=== PATIENT | female | born 1950 | race Caucasian/White ===

== ENCOUNTER 2020-12-29 17:12 | Emergency (ER) | payer OTHER, SELFPAY ==
[2020-12-29] VITALS (13 sets, daily range): BP systolic 118–172; BP diastolic 75–89; PULSE 79–90; RESP 14–20; TEMP 36.9; O2SAT 92–99
--- NOTE | ~2020-12-29 | CT_ITS ---
EXAMINATION: CT brain wo con DATE: 12/29/2020 18:19 INDICATION: Head injury post fall TECHNIQUE: Computed tomography (CT) of the head was performed without intravenous contrast. Sagittal and coronal reconstructions were performed. The mA was adjusted according to patient size. Iterative reconstruction technique was employed. The dose-length product was 983.67 mGy-cm. COMPARISON: head CT dated 12/29/2015 FINDINGS: Evaluation mildly limited by some motion artifact. No calvarial fracture. There is a small lenticular extra-axial hematoma measuring approximately 3.5 x 3.5 cm and up to 9 mm in thickness. The lenticula r configuration as well as that the hematoma extends to the margin but not beyond the region of the c oronal suture be consistent with epidural hematoma although differential would include small subdural hematoma. No other evident intracranial hemorrhage. No acute infarction. Symmetric prominence of the sulci and ventricles consistent with moderate age-appropriate diffuse cerebral volume loss. No midli ne shift. Basal cisterns remain patent. There is moderate scattered white matter hypoattenuation cons istent with chronic small vessel ischemic disease. The orbits, paranasal sinuses and mastoids are nor mal. IMPRESSION: 1. Small extra-axial hematoma overlying the right frontal lobe and favor epidural over subdural hemat lisa. Dr. Mccabe discussed these findings with Dr. Borden at 6:25 PM. 2. Age-related changes including moderate diffuse volume loss and moderate scattered white matter hyp oattenuation consistent with chronic small vessel ischemic disease. Reviewed, dictated and finalized at location A. IMPRESSION: 1. Small extra-axial hematoma overlying the right frontal lobe and favor epidur al over subdural hematoma. Dr. Mccabe discussed these findings with Dr. Arianna hurt at 6:25 PM. 2. Age-related changes including moderate diffuse volume loss and moderate scat tered white matter hypoattenuation consistent with chronic small vessel ischemi c disease.
--- NOTE | ~2020-12-29 | CT_ITS ---
EXAMINATION: CT brain wo con DATE: 12/30/2020 00:31 INDICATION: Epidural hematoma. TECHNIQUE: Computed tomography (CT) of the head was performed without intravenous contrast. The mA wa s adjusted according to patient size. Iterative reconstruction technique was employed. The dose-lengt h product was 605.33 mGy-cm. COMPARISON: Head CT 12/29/2020, brain MRI 05/17/2018 FINDINGS: There are scattered areas of low attenuation in the cerebral white matter. There is no acut e ischemic infarct or abnormal mass lesion. There is a predominantly hyperdense extra-axial hematoma overlying right frontal and temporal lobes with maximum thickness of 8 mm that crosses sutures, consi stent with a subdural hematoma. There are foci of acute subarachnoid hemorrhage in sulci in right fro ntal and parietal lobes. The ventricles are not abnormally dilated for the degree of diffuse brain vo lume loss. There is 3 mm leftward midline shift measured at the foramen of Monro. The orbits are norm al. There is mild mucosal thickening in the paranasal sinuses. The mastoid air cells are normal. Ther e is right frontal lateral scalp soft tissue swelling. IMPRESSION: 1. Stable acute right frontotemporal subdural hematoma. 2. Stable foci of acute subarachnoid hemorrhage in sulci in right frontal and parietal lobes. 3. Moderate nonspecific cerebral white matter disease, which likely represents chronic small vessel i schemic disease. Reviewed, dictated and finalized at location A. IMPRESSION: 1. Stable acute right frontotemporal subdural hematoma. 2. Stable foci of acute subarachnoid hemorrhage in sulci in right frontal and p arietal lobes. 3. Moderate nonspecific cerebral white matter disease, which likely represents chronic small vessel ischemic disease.
--- NOTE | ~2020-12-29 | CT_ITS ---
EXAMINATION: 1. CT facial & cervical spine wo DATE: 12/29/2020 18:23 INDICATION: Right-sided head injury with facial contusions post fall TECHNIQUE: 1. Computed tomography (CT) of the maxillofacial region and of the cervical spine were performed with out intravenous contrast. Sagittal and coronal reconstructions of both regions were obtained. Automat ed exposure control and iterative reconstruction technique were employed. The dose-length product was 204.26 mGy-cm. COMPARISON: None. FINDINGS: Maxillofacial CT: Small right frontal scalp hematoma. No fracture of the maxillofacial bones or visualized calvarium. S pecifically the osman of the orbits, paranasal sinuses, the mandible, zygomatic arches and pterygoid plates are all intact. Orbits, paranasal sinuses, mastoid air cells and middle ear cavities are abad l. Mild atherosclerotic calcific a cyst at the bilateral carotid siphons. Bilateral temporomandibular joints are normal alignment with osteoarthritis, mild on the right and severe on the left. 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 Cervical spine CT: Straightening of the normal cervical lordosis which is likely positional given the presence of a cerv ical collar. No spondylolisthesis or facet subluxation. Vertebral body heights are normal. No acute f racture. Minimal disc height loss throughout the cervical spine relatively sparing C6-C7. Multilevel severe bilateral cervical facet osteoarthritis. This continues to bilateral mild cervical neural fora caro stenosis most prominent in the upper cervical spine. Although suboptimally evaluated on noncont rast CT there appears to be mild central canal stenosis resulting from small disc bulges at several l evels in the cervical spine. Cervical soft tissues are unremarkable. Mild biapical pleural-parenchyma l scarring. IMPRESSION: 1. No maxillofacial or cervical fractures. 2. Cervical spondylosis with multilevel mild degenerative disc disease and severe facet osteoarthriti s. Reviewed, dictated and finalized at location A. IMPRESSION: 1. No maxillofacial or cervical fractures. 2. Cervical spondylosis with multilevel mild degenerative disc disease and payal re facet osteoarthritis.
--- NOTE | 2020-12-29 18:58 | ED.GENADULT ---
HPI - General Adult General Chief complaint: Fall Stated complaint: fall Time Seen by Provider: 12/29/20 17:51 History of Present Illness HPI narrative: Patient is a 70-year-old female presents the emergency department with chief complaint of fall and head injury. Patient is a resident of a local memory care skilled nursing and has history of advanced dementia. Patient cell and struck her head history is very limited due to the patient's advanced dementia. The patient has no real complaints other than a headache and states that her neck hurts somewhat Related Data Allergies Allergy/AdvReac Type Severity Reaction Status Date / Time No Known Allergies Allergy Unknown Verified 12/30/20 00:17 Review of Systems Review of Systems: A 10 system review of systems was completed on the patient and is negative except for what is stated in the HPI. Nursing and ancillary documentation was reviewed. [facility] Family History Family History Sibling Family history of lung cancer Family history of lung disease Mother Family history of congestive heart failure, Onset Age: 69 Father Family history of congestive heart failure, Onset Age: 76 Other Diabetes mellitus Social History Social History Smoking status: Former smoker Smoking end date: 04/11/09 Alcohol intake: never Exam Narrative: GENERAL: Well-appearing, well-nourished, and in no acute distress. HEAD: Normocephalic, there is a small contusion present on the forehead. EYES: PERRLA and EOMI. ENT: Nares clear, no rhinorrhea or epistaxis. Mucous membranes moist. NECK: Supple. CHEST: Clear to auscultation. No respiratory distress. HEART: Regular rate and rhythm. No murmur heard. Normal peripheral pulses. ABDOMEN: Soft, nontender, nondistended, normal active bowel sounds. EXTREMITIES: Normal range of motion. No edema. SKIN: Warm, dry, no rash. NEURO: No focal deficits. Alert at baseline neurological status. PSYCH: Normal mood and affect. Course Course Emergency Course: Patient was found to have a small epidural hematoma present on CT scan. This showed no evidence of midline shift and due to the patient's atrophy showed no significant mass-effect. Currently there are no beds at [facility] the images were reviewed by the neurosurgery acting section chief at [facility] and given the patient he has baseline DNR and has advanced dementia the patient was not felt to have a immediate surgical requirement for this. A repeat CT head was performed at midnight which showed no evidence of significant change. Per recommendations of neurosurgery and the aspirin will be held and the patient will follow up with the neurology clinic Vital Signs Vital signs: Vital Signs Respiratory Rate 14 12/29/20 17:20 Temperature 36.9 C 12/29/20 17:46 Pulse Rate 82 12/30/20 01:03 Respiratory Rate 14 12/30/20 01:03 Blood Pressure 156/77 H 12/30/20 01:03 Pulse Oximetry 97 12/30/20 01:03 Medical Decision Making Vital Signs Vital Signs: Vital Signs Respiratory Rate 14 12/29/20 17:20 Temperature 36.9 C 12/29/20 17:46 Pulse Rate 82 12/30/20 01:03 Respiratory Rate 14 12/30/20 01:03 Blood Pressure 156/77 H 12/30/20 01:03 Pulse Oximetry 97 12/30/20 01:03 Lab Data Result diagrams: 12/29/20 19:16 12/29/20 19:16 Labs: Lab Results 12/29/20 12/29/20 12/29/20 Range/Units 19:16 19:16 19:16 WBC 6.2 (4.5-10.0) K/mm3 RBC 3.82 L (4.2-5.4) M/mm3 Hgb 11.8 L (12.0-15.0) g/dL Hct 36.1 L (37.0-47.0) % MCV 94.5 (80-100) fl MCH 30.9 (26-34) pg MCHC 32.7 (32-36) g/dl RDW 13.5 (11.5-14.5) % Plt Count 157 (150-375) k/mm3 MPV 10.7 H (7.4-10.4) fl Immature Gran % (Auto) 0.5 (0-0.5) % Neut % (Auto) 76.9 H (45.5-73.1) % Lymph %
--- NOTE | 2020-12-29 19:19 | PC.NURSE ---
Assumed care of pt. at this time. Report from GIFTY Goode
[2020-12-29 19:22] LABS: Basophils Percent Auto 0.5 % (0.2-1.2); Eosinophils Percent Auto 0.6 % (0-4.4); Hematocrit 36.1 % (37.0-47.0); Hemoglobin 11.8 g/dL (12.0-15.0); Immature Granulocyte Absolute 0.03 K/mm3 (0.00-0.031); Immature Granulocyte Percent A 0.5 % (0-0.5); Lymphocytes Absolute Auto 0.73 K/mm3 (0.9-3.2); Lymphocytes Percent Auto 11.7 % (18.3-44.2); Mean Corpuscular HGB Conc 32.7 g/dl (32-36); Mean Corpuscular Hemoglobin 30.9 pg (26-34); Mean Corpuscular Volume 94.5 fl (80-100); Mean Platelet Volume 10.7 fl (7.4-10.4); Monocytes Absolute Auto 0.6 K/mm3 (0.1-0.6); Monocytes Percent Auto 9.8 % (2.6-8.5); Neutrophils Absolute Auto 4.8 K/mm3 (1.3-6.7); Neutrophils Percent Auto 76.9 % (45.5-73.1); Platelet Count Result 157 k/mm3 (150-375); Red Blood Count 3.82 M/mm3 (4.2-5.4); Red Cell Distribution Width 13.5 % (11.5-14.5); White Blood Count 6.2 K/mm3 (4.5-10.0)
[2020-12-29 19:38] LABS: Prothrombin Time 12.6 Seconds (11.1-14.7)
[2020-12-29 19:39] LABS: Partial Thromboplastin Time 29.2 SECONDS (22.3-36.8)
[2020-12-29 19:41] LABS: Alanine Aminotransferase 20 U/L (4-35); Albumin Level 4.3 g/dL (3.5-5.1); Alkaline Phosphatase 82 U/L (38-126); Anion Gap 9 mmol/L (8-16); Aspartate Amino Transferase 38 U/L (14-36); Bilirubin,Total 0.2 mg/dL (0.2-1.3); Blood Urea Nitrogen 16 mg/dL (7-17); Calcium 9.2 mg/dL (8.4-10.2); Carbon Dioxide 28 mmol/L (22-30); Chloride 108 mmol/L (98-107); Estimated CRCL calculation 59 ml/min; Estimated Glomerular Filt Rate > 60; Glucose 88 mg/dL (65-110); Potassium 3.8 mmol/L (3.4-5.0); Sodium 145 mmol/L (137-145)
--- NOTE | 2020-12-29 20:48 | PC.NURSE ---
Franca from [facility] transfer center called with update. Patient is on the waitlist for the surgical ICU.
--- NOTE | 2020-12-29 21:05 | PC.NURSE ---
Spoke with Zander at [facility]. ETA 2 hours. Will call before they come.
--- NOTE | 2020-12-29 21:18 | PC.NURSE ---
spoke w/ alyssa triage nurse. states pt. is on bed wait list and there probably will not be any beds tonight.
[2020-12-30] VITALS (13 sets, daily range): BP systolic 138–156; BP diastolic 71–78; PULSE 80–90; RESP 13–19; O2SAT 97–99
--- NOTE | 2020-12-30 01:59 | PC.NURSE ---
called [facility] to request transport. ETA [id number]
--- NOTE | 2020-12-30 02:37 | PC.NURSE ---
[facility] here.
== END 2020-12-30 02:50 ==
PROVIDERS: Emergency Provider Emergency Medicine; PCP Internal Medicine
DX: S06.4X0A Epidural hemorrhage without loss of consciousness, initial encounter (principal); F03.90 Unspecified dementia, unspecified severity, without behavioral disturbance, psychotic disturbance, mood disturbance, and anxiety; Z87.891 Personal history of nicotine dependence; Z66 Do not resuscitate; W19.XXXA Unspecified fall, initial encounter
CPT/HCPCS: 36415; 70450; 70486; 72125; 80053; 85025; 85610; 85730; 99284

== ENCOUNTER 2021-01-06 18:17 | Emergency (ER) | payer OTHER, SELFPAY ==
--- NOTE | ~2021-01-06 | XR_ITS ---
EXAMINATION: XR chest 1V portable INDICATION: Shortness of breath, COVID 19 positive TECHNIQUE: Portable AP chest at 1850 hours COMPARISON: 03/09/2016 FINDINGS: The lungs are free of acute opacities. There is no pleural effusion or pneumothorax. The ca rdiomediastinal silhouette is normal. IMPRESSION: 1. No acute cardiopulmonary abnormality. Reviewed, dictated and finalized at location A.
--- NOTE | ~2021-01-06 | CT_ITS ---
EXAMINATION: CTA chest PE protocol DATE: 01/06/2021 22:50 INDICATION: Shortness of breath TECHNIQUE: Computed tomography angiography (CTA) of the chest was performed with 100 mL Omnipaque-350 intravenous contrast timed to evaluate the pulmonary arteries. Coronal maximum intensity projection 3D-reconstructions were created by the technologist. The dose-length product (DLP) was 497.64 mGy-cm. Automated exposure control and iterative reconstruction technique were employed. COMPARISON: 04/16/2016 FINDINGS: The pulmonary arteries are well-opacified. No pulmonary embolism is identified. There are p atchy groundglass opacities in the lungs, no pleural effusion or pneumothorax is identified. No patho logically enlarged thoracic lymph nodes are identified. The heart size is normal. There is an age-ind eterminate fracture of T12 which is new since the comparison examination. A small sliding hiatal eric ia is noted. IMPRESSION: 1. No pulmonary embolism. 2. Patchy groundglass opacities, consistent with COVID 19 pneumonia. 3. Age-indeterminate superior endplate fracture of T12, new since the comparison examination. Reviewed, dictated and finalized at location A. IMPRESSION: 1. No pulmonary embolism. 2. Patchy groundglass opacities, consistent with COVID 19 pneumonia. 3. Age-indeterminate superior endplate fracture of T12, new since the compariso n examination.
--- NOTE | 2021-01-06 18:29 | ECG_ITS ---
Measurements Intervals [place] Rate: 81 P: 23 OR: 164 QRS: -36 QRSD: 88 T: -9 QT: 392 QTc: 456 Interpretive Statements SINUS RHYTHM LOW QRS VOLTAGE IN PRECORDIAL LEADS POOR R WAVE PROGRESSION, CONSIDER ANTERIOR INFARCT INFERIOR INFARCT, AGE INDETERMINATE BORDERLINE ST-T WAVE ABNORMALITY- ANT/HIGH LAT LEADS BASELINE ARTIFACT- I, II, III, AVR, AVL, AVF, V1-V6 ABNORMAL ECG Electronically Signed On 01-06-2021 20:23:07 CDT by Roderick Fernandez D.O.
[2021-01-06 18:40] VITALS: BP 122/74; PULSE 84; RESP 19; TEMP 36.8; O2SAT 93
--- NOTE | 2021-01-06 18:40 | ED.GENADULT ---
HPI - General Adult General Chief complaint: Shortness of Breath/Dyspnea <Martha Zaidi MD - Last Filed: 01/06/21 18:48> Stated complaint: covid + low o2 <Martha Zaidi MD - Last Filed: 01/06/21 18:48> Time Seen by Provider: 01/06/21 18:24 <Martha Zaidi MD - Last Filed: 01/06/21 18:48> Source: patient and EMS <Martha Zaidi MD - Last Filed: 01/06/21 18:48> History of Present Illness HPI narrative: Patient is a 70 y/o female sent from [place] for low pulse ox. Patient reportedly had a pulse ox of 88% on RA. Patient is poor historian and unable to provide history. She does not know why she is here. She reportedly tested positive for COVID recently at [place]. <Martha Zaidi MD - Last Filed: 01/06/21 18:48> Related Data Allergies/adverse reactions: Allergies Allergy/AdvReac Type Severity Reaction Status Date / Time No Known Allergies Allergy Unknown Verified 12/30/20 00:17 <Martha Zaidi MD - Last Filed: 01/06/21 18:48> Review of Systems Review of Systems: ROS unobtainable: Yes unobtainable due to mental status <Martha Zaiid MD - Last Filed: 01/06/21 18:48> [facility] Family History Family History: Family History Sibling Family history of lung cancer Family history of lung disease Mother Family history of congestive heart failure, Onset Age: 69 Father Family history of congestive heart failure, Onset Age: 76 Other Diabetes mellitus <Martha Zaidi MD - Last Filed: 01/06/21 18:48> Social History Social History: Social History Smoking status: Former smoker Smoking end date: 04/11/09 Alcohol intake: never <Martha Zaidi MD - Last Filed: 01/06/21 18:48> Exam Const: General: no acute distress and ill appearing <Martha Zaidi MD - Last Filed: 01/06/21 18:48> Orientation/consciousness: confusion <Martha Zaidi MD - Last Filed: 01/06/21 18:48> HENMT: Head: normocephalic <Martha Zaidi MD - Last Filed: 01/06/21 18:48> Ears: external ears normal <Martha Zaidi MD - Last Filed: 01/06/21 18:48> General nose exam: Normal external nose present <Martha Zaidi MD - Last Filed: 01/06/21 18:48> Eyes: General: appearance normal, both eyes and all related structures <Martha Zaidi MD - Last Filed: 01/06/21 18:48> Conjunctivae: conjunctivae normal <Martha Zaidi MD - Last Filed: 01/06/21 18:48> Neck: Neck: normal visual inspection and full ROM <Martha Zaidi MD - Last Filed: 01/06/21 18:48> Chest: Chest palpation & inspection: normal inspection of the chest and no tenderness <Martha Zaidi MD - Last Filed: 01/06/21 18:48> Resp: Effort & Inspection: normal respiratory effort <Martha Zaidi MD - Last Filed: 01/06/21 18:48> Auscultation: clear to auscultation bilaterally <Martha Zaidi MD - Last Filed: 01/06/21 18:48> Cardio: Rate: regular rate <Martha Zaidi MD - Last Filed: 01/06/21 18:48> Rhythm: regular rhythm <Martha Zaidi MD - Last Filed: 01/06/21 18:48> GI: GI Palp: No abdominal tenderness and Yes Soft to palpation <Martha Zaidi MD - Last Filed: 01/06/21 18:48> Skin: General skin exam: normal color and turgor normal <Martha Zaiid MD - Last Filed: 01/06/21 18:48> Neuro: General: confusion <Martha Zaidi MD - Last Filed: 01/06/21 18:48> Extrem: General: normal to inspection, full ROM and no pedal edema <Martha Zaidi MD - Last Filed: 01/06/21 18:48> Psych: Appearance: grossly normal <Martha Zaidi MD - Last Filed: 01/06/21 18:48> Mental Status: mental status grossly normal <Martha Zaidi MD - Last Filed: 01/06/21 18:48> Affect: normal affect <Martha Zaidi MD - Last Filed: 01/06/21 18:48> Course Reevaluation(s) Reevaluation #1: Patient has not required oxygen since being in ER. Oxygen saturation with her sleeping has been 94-99% on room air. She was found to have signs of covi
[2021-01-06 18:45] VITALS: PULSE 84
[2021-01-06 19:18] VITALS: BP 123/69; PULSE 78; RESP 14; O2SAT 96
[2021-01-06 19:40] LABS: Hematocrit 38.7 % (37.0-47.0); Hemoglobin 12.6 g/dL (12.0-15.0); Mean Corpuscular HGB Conc 32.6 g/dl (32-36); Mean Corpuscular Volume 95.3 fl (80-100); Mean Platelet Volume 11.2 fl (7.4-10.4); Platelet Count Result 130 k/mm3 (150-375); Red Blood Count 4.06 M/mm3 (4.2-5.4); Red Cell Distribution Width 13.1 % (11.5-14.5); White Blood Count 5.2 K/mm3 (4.5-10.0)
[2021-01-06 19:50] LABS: Alanine Aminotransferase 42 U/L (4-35); Albumin Level 4.1 g/dL (3.5-5.1); Alkaline Phosphatase 86 U/L (38-126); Anion Gap 10 mmol/L (8-16); Aspartate Amino Transferase 53 U/L (14-36); Bilirubin,Total 0.4 mg/dL (0.2-1.3); Blood Urea Nitrogen 18 mg/dL (7-17); Carbon Dioxide 27 mmol/L (22-30); Chloride 105 mmol/L (98-107); Estimated CRCL calculation 82 ml/min; Estimated Glomerular Filt Rate > 60; Glucose 183 mg/dL (65-110); Potassium 3.4 mmol/L (3.4-5.0); Sodium 142 mmol/L (137-145)
[2021-01-06 20:09] LABS: Band Neutrophils Percent 6 % (0-6); Lymphocytes Absolute Manual 0.67 K/mm3 (1.1-4.5); Monocytes Absolute Manual 0.52 K/mm3 (0.1-0.90); Monocytes Percent Manual 10 % (3-9); Neutrophils Percent Manual 71 % (46-73); Total Cells Counted 100
[2021-01-06 20:10] LABS: Platelet Estimate Decreased (Adequate)
[2021-01-06 22:04] VITALS: BP 152/84; PULSE 71; RESP 14; O2SAT 98
--- NOTE | 2021-01-06 22:36 | PC.NURSE ---
Addendum entered by Toyin Holt RN 01/06/21 22:36: Pt son name Norman Roblero - verbal consent. Original Note: This rn got verbal consent from pt son.
[2021-01-06 23:39] LABS: Alveolar/Arterial O2 Gradient 32.4 mmHg; Base Excess ABG 2.2 mEq/l (+/-2.0); Carboxyhemoglobin 0.2 % THb (0-2.0); Fractional Inspired Oxygen 21 %; HCO3 ABG 26.6 mEq/l (22.0-26.0); Methemoglobin ABG 0.1 %THb (0-1.5); Oxygen Content ABG 16.2 %vol (16.0-22.0); Oxygen Saturation ABG 94.3 % (95.0-100.0); Oxyhemoglobin 91.8 % THb (90.0-100.0); PCO2 ABG 40.5 mmHg (35.0-45.0); PO2 ABG 68.8 mmHg (80.0-100.0); PO2 FiO2 Ratio Arterial Blood 3.28 %; Reduced Hemoglobin 7.9 %THb (0-5.0); Total Hemoglobin 12.5 g/dL (12.0-18.0); pH ABG 7.435 (7.350-7.450)
[2021-01-06 23:40] LABS: Device ROOM AIR; Modified Allen's Test Pass; Site Drawn RIGHT RADIAL
[2021-01-06 23:49] VITALS: BP 126/103; PULSE 75; RESP 15; O2SAT 96
--- NOTE | 2021-01-07 00:16 | PC.NURSE ---
called [facility] and spoke w/ Rajni. she states pt does not ambulate and that she gets around w/ a wheelchair.
[2021-01-07 01:30] VITALS: BP 127/88; PULSE 71; RESP 15; O2SAT 97
--- NOTE | 2021-01-07 02:28 | PC.NURSE ---
this rn spoke with son and he verbalized understanding that the hospitalist does not see medical reason to admit, but that they would like to send her home with a nebulizing machine and neb solution. Son verbalized understanding at this time, no further questions.
[2021-01-07 03:20] VITALS: BP 135/81; PULSE 70; RESP 14; O2SAT 95
--- NOTE | 2021-01-07 04:12 | PCDIET ---
[facility] here
== END 2021-01-07 04:20 ==
PROVIDERS: Emergency Medicine; Emergency Provider General Practice; PCP Internal Medicine
DX: U07.1 COVID-19 (principal); J12.82 Pneumonia due to coronavirus disease 2019; Z87.891 Personal history of nicotine dependence; R94.31 Abnormal electrocardiogram [ECG] [EKG]
CPT/HCPCS: 36415; 36600; 71045; 71275; 80053; 82375; 82805; 83050; 85025; 93005; 99284; Q9967